=== PATIENT | male | born 1975 | race Caucasian/White ===

== ENCOUNTER 2017-03-23 07:40 | Emergency (ER) | payer OTHER ==
[~2017-03-23] VITALS: Ht 188 cm; Wt 84.1 kg
--- NOTE | 2017-03-23 07:44 | ED.REPORT ---
HPI-Dizziness / Weakness Date of Service Mar 23, 2017 ED Provider: Karlos Hidalgo Patient is a 43 year old male with a hx of HTN who presents to the ED via EMS complaining of sudden onset dizziness while driving. His dizziness is worse with movement. Associated symptoms include nausea and vomiting. He denies ear pain, numbness, weakness, trouble speaking or swallowing, slurred speech, or any other symptoms. He was given 6.25 phenergan en route Nursing Notes Stated Complaint: DIZZY/NAUSEA/DIAPHORETIC Nursing Notes Reviewed: Yes Allergies: Coded Allergies: No Known Allergies (Unverified , 03/23/17) Scheduled PRN Lorazepam (Ativan) 1 Mg Tablet 1 MG PO TID PRN PRN For Anxiety General Time Seen by MD: 07:44 Chief Complaint Dizzy Hx Obtained From: Patient Arrived By: Ambulance Onset Occurred: Just prior to arrival Symptom Duration: Since onset Severity: Current: No pain currently Severity: Maximum: No pain Past Medical History Past Medical History HTN Heart murmur Past Surgical History Denies Smoking History Never Smoker Social History Alcohol Use: 1-3 per day Drug Use: THC Ambulatory Status Independent Review of Systems Ears / Nose / Throat: Denies: Earache bilateral GI: Reports: Nausea, Vomiting, Denies: Dysphagia Neurologic: Reports: Dizziness, Denies: Numbness, Slurred speech, Unable to speak, Weakness Complete sys rev & neg: except as marked. Physical Exam Initial Vital Signs Vital Signs (First) Date Time Temp Pulse Resp B/P Pulse Ox O2 Delivery O2 Flow Rate FiO2 03/23/17 07:45 76 15 163/96 100 Room Air Initial VS: Reviewed, Vital signs abnormal Neck: Full range of motion Skin: Warm, Dry General/Constitutional: Awake, Cooperative Head / Eyes: Atraumatic, Normocephalic Respiratory / Chest: Atraumatic, Breath sounds NL, Breath sounds = bilat, No respiratory distress Cardiovascular: Heart rate NL, Regular rhythm mitral murmur at the apex. Neurologic: Oriented X3, Speech NL, No motor deficits, No sensory deficits fast phase nystagmus to left head impulse positive to L Lower Extremity / Pelvis / MS: Atraumatic Upper Extremity / MS: Atraumatic Interpretation & Diagnostics Lab Results Interpretation Result Diagram: 03/23/17 0750 03/23/17 0750 Test 03/23/17 07:50 White Blood Count 9.0th/mm3 (3.8-10.1) Red Blood Count 5.14mil/mm3 (4.40-5.80) Hemoglobin 15.4g/dL (13.8-17.2) Hematocrit 45.1% (41.0-50.0) Mean Corpuscular Volume 87.7fL (81-100) Mean Corpuscular Hemoglobin 30.0pg (27.0-35.0) Mean Corpuscular Hemoglobin Concent 34.1% (32.0-37.0) Red Cell Distribution Width 13.1% (12.3-15.4) Platelet Count 309bil/L (150-400) Neutrophils (%) (Auto) 52.2% (40-74) Lymphocytes (%) (Auto) 35.7% (14-46) Monocytes (%) (Auto) 8.4% (4-12) Eosinophils (%) (Auto) 3.1% (0-5) Basophils (%) (Auto) 0.4% (0-3) Sodium Level 140mEq/L (134-144) Potassium Level 3.3mEq/L (3.5-5.2) Chloride Level 101mEq/L (97-108) Carbon Dioxide Level 20mmol/L (18-29) Blood Urea Nitrogen 11mg/dL (6-20) Creatinine 0.94mg/dL (0.76-1.27) Estimat Glomerular Filtration Rate 95mL/min (>59) Glucose Level 224mg/dL (60-99) Calcium Level 9.5mg/dL (8.5-10.1) Total Bilirubin 0.4mg/dL (0.0-1.2) Aspartate Amino Transf (AST/SGOT) 32U/L (0-50) Alanine Aminotransferase (ALT/SGPT) 28U/L (0-44) Alkaline Phosphatase 49U/L (25-150) Total Protein 7.8g/dL (6.4-8.4) Albumin 4.7g/dL (3.4-5.0) Lab Results Interpretation: MRI BRAIN: IMPRESSION: 1. Image quality limited by patient motion artifact. 2. No acute intracranial disease process. 3. No areas of acute or chronic infarction. 4. No abnormal intracranial mass or abnormal intracranial signal identified within limitations caused by motion artifact. Dictated by: Crystal Cao MD, PhD on 03/23/2017 at 10:26 Approved by: Crystal Cao MD, PhD on 03/23/2017 at 10:32 CT Head Interpretation IMPRESSION: No acute intracranial disease process. Dictated by: Crystal Cao MD, PhD on 03/23/2017 at 8:24 Approved by: Crystal Cao MD, PhD on 03/23/2017 at 8:30 Study: Head CT no contrast Interpretation / Wet Read by: Interpret - Radiologist Re-Eval/Medical Decision Med Decision/Clinical Course Patient presents with vertigo type symptoms. Workup unremarkable for acute stroke. Improved after Ativan. We will plan to discharge. Re-Evaluation/Progress #1: Time of Eval: 09:15 Re-Evaluation/Progress Note: Discussed plan for MRI. Patient understands and agrees with plan. All questions addressed at this time. Re-Evaluation/Progress #2: Time of Eval: 10:45 Re-Evaluation/Progress Note: Rechecked pt. Discussed imaging results and plan for discharge. Patient understands and agrees with plan. All questions addressed at this time. Counseled Regarding: Diagnosis, Lab results, Need for follow-up, When/why to return to ED Patient Discharge & Departure Impression: Primary Impression: Vertigo Disposition: Home Discharge Condition All VS Reviewed: Yes Condition: Stable Patient Instructions: Vertigo (ED) Additional Instructions: Thank you for entrusting us with your care. Your CT and MRI are reassuring. We did not find a dangerous cause for your symptoms at this time. Take Ativan as prescribed to help relieve your symptoms. Follow up with your primary doctor within the next 1-2 days. Return to the emergency department for new or worsening symptoms. Referrals: Eugenie Petersen Attestation Portions of this note were transcribed by Steph Coleman. I, Dr. Hidalgo personally performed the history, physical exam and medical decision-making; I reviewed and confirmed the accuracy of the information in the transcribed note. Signed by: Miles Sin, 03/23/17 Eugenie Petersen Timothy S DO Mar 23, 2017 07:44 STEPH COLEMAN Mar 23, 2017 08:03
[2017-03-23 07:45] VITALS: BP 163/96; PULSE 76; RESP 15; O2SAT 100
[2017-03-23] MEDS ORDERED: 0.9% Sodium Chloride 1,000 ML IV ONE (08:01)
[2017-03-23 08:14] LABS: BASOPHILS % (AUTO) 0.4 % (0-3); EOSINOPHILS % (AUTO) 3.1 % (0-5); MONOCYTES % (AUTO) 8.4 % (4-12); Mean Corpuscular Volume 87.7 fL (81-100); NEUTROPHILS % (AUTO) 52.2 % (40-74); Platelet Count 309 bil/L (150-400)
[2017-03-23] MEDS ORDERED: Ondansetron 2 mg/mL 2 mL Inj IVPUSH PRN (08:30)
--- NOTE | 2017-03-23 08:32 | DRSVH ---
PROCEDURE: CT BRAIN WITHOUT CONTRAST ([id number]) INDICATIONS: dizziness TECHNIQUE: Noncontrast 4.5 mm thick angled axial sections acquired from the foramen magnum to the vertex, with c oronal reformats. COMPARISON: None. FINDINGS: Image quality: Excellent. CSF spaces: Basal cisterns are patent. No extra-axial fluid collections. Ventricles are normal in size and shape. Brain: No midline shift. No intracranial masses or hemorrhage. Bowden-white matter interface is norm al. Skull and face: Calvarium and visualized facial bones are intact, without suspicious lesions. Sinuses: Visualized sinuses and mastoids are clear. IMPRESSION: No acute intracranial disease process. Dictated by: Crystal Cao MD, PhD on 03/23/2017 at 8:24 Approved by: Crystal Cao MD, PhD on 03/23/2017 at 8:30
[2017-03-23 09:30] VITALS: BP 140/81; PULSE 97; RESP 14; O2SAT 99
--- NOTE | 2017-03-23 10:33 | DRSVH ---
PROCEDURE: MRI BRAIN WITHOUT CONTRAST ([id number]) INDICATIONS: dizziness, nystagmus TECHNIQUE: Noncontrast axial T1 spin echo, axial T2 fast spin echo, sagittal and axial FLAIR, coronal T2 fast sp in echo, axial gradient echo, axial diffusion and ADC through the brain. COMPARISON: [facility], CT, CT BRAIN WO CON, 03/23/2017, 8:16. FINDINGS: Image quality: Limited by motion artifact. CSF Spaces: Basal cisterns are patent. No extra-axial fluid collections. Ventricles are normal in size and shape. Brain: No intracranial masses or hemorrhage. Bowden/white matter interface is normal. Brainstem appe ars normal. Diffusion-weighted images demonstrate no acute ischemic insult. No areas of encephalomal acia. No susceptibility weighted abnormalities are identified in the brain parenchyma. Normal intrava scular flow voids are present. Skull and face: Calvarium has normal marrow signal. Orbits appear normal. Sinuses: Mild mucosal thickening noted in the maxillary sinuses. The mastoids are clear. IMPRESSION: 1. Image quality limited by patient motion artifact. 2. No acute intracranial disease process. 3. No areas of acute or chronic infarction. 4. No abnormal intracranial mass or abnormal intracranial signal identified within limitations caused by motion artifact. Dictated by: Crystal Cao MD, PhD on 03/23/2017 at 10:26 Approved by: Crystal Cao MD, PhD on 03/23/2017 at 10:32
[2017-03-23 11:00] VITALS: BP 132/67; PULSE 95; RESP 16; O2SAT 96
[2017-03-23] MEDS ORDERED: LORA-303 PO (11:07)
[2017-03-23 11:27] VITALS: BP 132/67; PULSE 95; RESP 16; O2SAT 96
== END 2017-03-23 11:27 | disposition home or self-care (01) ==
LOC: EDBD 07:40 → SED 07:40
DX: R42 Dizziness and giddiness (principal); I10 Essential (primary) hypertension; R11.2 Nausea with vomiting, unspecified
CPT/HCPCS: 36415; 70450; 70551; 80053; 85025; 96361; 96374; 96375; 99284; J2060; J2405; J7030